=== PATIENT | male | born 1950 | race Caucasian/White ===

== ENCOUNTER 2023-01-15 04:27 | Day surgery (SDC) | payer BC ==
[2023-01-10 16:20] VITALS: BMI 31.8
[2023-01-15 10:19] VITALS: TEMP 98.6
[2023-01-15 10:26] VITALS: BP 122/76; PULSE 65; RESP 16
== END 2023-01-15 10:27 | disposition home or self-care (01) ==
LOC: JASU-ENDO 04:27
PROVIDERS: ATTEND Internal Medicine Gastroenterology
PROC: 0DJD8ZZ Inspection of Lower Intestinal Tract, Via Natural or Artificial Opening Endoscopic (ICD-10-PCS; principal; 2023-01-15 09:00)
DX: Z12.11 Encounter for screening for malignant neoplasm of colon (principal); K57.30 Diverticulosis of large intestine without perforation or abscess without bleeding; K63.89 Other specified diseases of intestine; K64.8 Other hemorrhoids